=== PATIENT | male | born 1960 | race Hispanic/Latino ===

== ENCOUNTER 2017-09-30 14:23 | Emergency (ER) | payer OTHER ==
[2017-09-30 14:38] VITALS: PULSE 76; TEMP 98.2
[2017-09-30] MEDS ORDERED: Albuterol-Ipratrop 3 mg / 0.5 (3 ml) UD INH STA (15:09)
--- NOTE | 2017-09-30 15:13 | ED PDOC ---
HPI: SOB/CHF/COPD Time Seen by Provider: 09/30/17 15:11 Chief Complaint (Nursing): Shortness Of Breath Chief Complaint (Provider): cough/sob History Per: Patient (56 y/o male sent by [facility] for evaluation of RBBB noted on EKG. Patient has had sob/cough x 1 week preceded by uri/nasal congestion x 2 weeks. Has taken mucinex otc at home. Denies any h/o smoking/etoh/drug use. ) Past Medical History Reviewed: Historical Data, Nursing Documentation, Vital Signs Vital Signs: Last Vital Signs Temp 98.2 F 09/30/17 14:36 Pulse 76 09/30/17 14:36 Resp 17 09/30/17 14:56 BP 145/76 09/30/17 14:36 Pulse Ox 98 09/30/17 15:13 - Family History Family History: States: No Known Family Hx - Home Medications Home Medications: Ambulatory Orders Medication Instructions Recorded Albuterol 0.083% [Albuterol 0.083% 2.5 mg IH Q6 PRN #100 neb 09/30/17 Inhal Saba (2.5 mg/3 ml) UD] Albuterol HFA [Ventolin HFA 90 2 puff IH [id number] PRN #1 in 09/30/17 mcg/actuation (8 g)] Azithromycin [Zithromax] 250 mg PO DAILY #6 tab 09/30/17 Mask, Face [Nebulizer Aerosol Mask 1 dev XX PRN PRN #1 dev 09/30/17 Adult] Nebulizer [Aeroeclipse II] 1 each MC Q6 PRN #1 each 09/30/17 predniSONE [predniSONE Tab] 3 tab PO DAILY #12 tab 09/30/17 - Allergies Allergies/Adverse Reactions: Allergies Allergy/AdvReac Type Severity Reaction Status Date / Time No Known Allergies Allergy Verified 09/30/17 14:35 Review of Systems ROS Statement: Except As Marked, All Systems Reviewed And Found Negative Respiratory: Positive for: Cough, Shortness of Breath Physical Exam - Reviewed Nursing Documentation Reviewed: Yes Vital Signs Reviewed: Yes - Physical Exam Appears: Positive for: Well, Non-toxic, No Acute Distress Head Exam: Positive for: ATRAUMATIC, NORMAL INSPECTION, NORMOCEPHALIC Skin: Positive for: Normal Color, Warm, DRY Eye Exam: Positive for: EOMI, Normal appearance, PERRL ENT: Positive for: Normal ENT Inspection Neck: Positive for: Normal, Painless ROM Cardiovascular/Chest: Positive for: Regular Rate, Rhythm Respiratory: Positive for: Normal Breath Sounds, Wheezing Gastrointestinal/Abdominal: Positive for: Normal Exam, Bowel Sounds, Soft Back: Positive for: Normal Inspection Extremity: Positive for: Normal ROM Neurologic/Psych: Positive for: Alert, Oriented - Laboratory Results Result Diagrams: 09/30/17 15:49 09/30/17 15:49 - ECG O2 Sat by Pulse Oximetry: 98 - Progress ED Course And Treament: solumedrol 125 mg i vx 1 dose Duoneb x 1 dose ekg nsr RBBB noted no st abnormality noted. CXR: nad Patient re-examined. Feels improved after duoneb. Disposition - Clinical Impression Clinical Impression: Bronchitis, RBBB - Patient ED Disposition Is Patient to be Admitted: No - Disposition Disposition: Routine/Home Disposition Time: 18:12 Condition: FAIR Prescriptions: Albuterol HFA [Ventolin HFA 90 mcg/actuation (8 g)] 2 puff IH [id number] PRN #1 in PRN Reason: Shortness Of Breath Albuterol 0.083% [Albuterol 0.083% Inhal Saba (2.5 mg/3 ml) UD] 2.5 mg IH Q6 PRN #100 neb PRN Reason: Shortness Of Breath Azithromycin [Zithromax] 250 mg PO DAILY #6 tab Mask, Face [Nebulizer Aerosol Mask Adult] 1 dev XX PRN PRN #1 dev PRN Reason: Shortness Of Breath Nebulizer [Aeroeclipse II] 1 each MC Q6 PRN #1 each PRN Reason: Shortness Of Breath predniSONE [predniSONE Tab] 3 tab PO DAILY #12 tab Instructions: Acute Bronchitis Forms: [facility] ([place]), [facility] ED School/Work Excuse
--- NOTE | 2017-09-30 16:02 | RAD ---
HISTORY: cough COMPARISON: No prior. TECHNIQUE: Chest PA and lateral FINDINGS: LUNGS: No active pulmonary disease. PLEURA: No significant pleural effusion identified. No pneumothorax apparent. CARDIOVASCULAR: Normal. OSSEOUS STRUCTURES: No significant abnormalities. VISUALIZED UPPER ABDOMEN: Normal. OTHER FINDINGS: None. IMPRESSION: No active disease.
[2017-09-30 16:04] LABS: BASO # 0.1 K/uL (0.0-0.2); BASO % 0.8 % (0.0-2.0); EOS # 0.8 K/uL (0.0-0.7); EOS % 6.7 % (0.0-4.0); HEMOGLOBIN 13.7 g/dL (12.0-18.0); LYMPH # 1.8 K/uL (1.0-4.3); LYMPH % 14.1 % (20.0-40.0); MEAN CELL VOLUME 87.7 fl (80.0-94.0); MEAN CORPUSCULAR HEMOGLOBIN 28.6 pg (27.0-31.0); MEAN CORPUSCULAR HGB CONC 32.6 g/dL (33.0-37.0); MEAN PLATELET VOLUME 8.4 fl (7.2-11.7); MONO % 7.7 % (0.0-10.0); NEUT # 8.9 K/uL (1.8-7.0); NEUT % 70.7 % (50.0-75.0); RBC 4.78 Mil/uL (4.40-5.90); WHITE BLOOD COUNT 12.5 K/uL (4.8-10.8)
[2017-09-30] MEDS ORDERED: Albuterol-Ipratrop 3 mg / 0.5 (3 ml) UD ONE (16:07)
[2017-09-30 16:22] LABS: ALB/GLOB RATIO 1.3 (1.0-2.1); ALBUMIN 4.1 g/dL (3.5-5.0); ALT/SGPT 39 U/L (21-72); AST/SGOT 34 U/L (17-59); BLOOD UREA NITROGEN 14 mg/dl (9-20); CALCIUM 9.7 mg/dL (8.4-10.2); GFR AFRICAN-AMERICAN > 60; GFR NON-AFRICAN AMERICAN > 60
[2017-09-30 16:33] LABS: B-TYPE NATRIURETIC PEPTIDE 130 pg/ml (0-900)
[2017-09-30 18:28] VITALS: BP 133/71; RESP 18; O2SAT 99
--- NOTE | 2017-10-01 15:06 | CARD ---
APPROVED REPORT EKG Measurement Heart [id number] <Conclusion> Normal sinus rhythm Possible Left atrial enlargement Right bundle branch block Abnormal ECG
== END 2017-09-30 18:28 | disposition home or self-care (01) ==
LOC: H.ER 14:23
DX: J40 Bronchitis, not specified as acute or chronic (principal); I45.10 Unspecified right bundle-branch block; J44.9 Chronic obstructive pulmonary disease, unspecified
CPT/HCPCS: 71046; 80053; 83735; 83880; 84484; 85025; 93005; 96374; 99284; J2930